=== PATIENT | male | born 1940 | race Caucasian/White ===

== ENCOUNTER 2020-08-01 10:33 | Outpatient (CLI) | payer MEDICARE, BC | END 2020-08-01 10:34 | disposition home or self-care (01) | LOC: CSHMRI 10:33 | PROVIDERS: ATTEND Family Medicine | DX: R41.3 Other amnesia (principal) | CPT/HCPCS: 70553 ==

== ENCOUNTER 2021-04-24 11:31 | Outpatient (CLI) | payer MEDICARE, BC | END 2021-04-24 11:32 | disposition home or self-care (01) | LOC: CSHRAD 11:31 | PROVIDERS: ATTEND Nurse Practitioner | DX: T82.897A Other specified complication of cardiac prosthetic devices, implants and grafts, initial encounter (principal) | CPT/HCPCS: 71046 ==